=== PATIENT | female | born 1980 | race Two or more races ===

== ENCOUNTER 2018-09-14 21:39 | Emergency (ER) | payer SELFPAY ==
[~2018-09-14] VITALS: Ht 160 cm; Wt 99.8 kg
[~2018-09-14 21:39] MED LIST: ALBU2.5V8 INH; IBUP-1060 PO
[2018-09-14 21:40] VITALS: BP 160/87
[2018-09-14] MEDS ORDERED: ACETAMINOPHEN/CODEINE 300/30MG TABLET. PO ONE (22:30)
[2018-09-14] MEDS ORDERED: NAPR-683 PO (22:52)
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
--- NOTE | 2018-09-15 02:15 | RAD ---
Left shoulder AP and scapular Y x-rays HISTORY: Left shoulder pain. FINDINGS: No fracture or dislocation. Mild lateral clavicle osteophyte at the AC joint. IMPRESSION: No acute osseous injury of the left shoulder. Left clavicle x-rays 2 views HISTORY: Left shoulder and left clavicle pain. FINDINGS: There is a moderate osteophyte of the lateral clavicle projecting superiorly. No separation of the AC joint. No fracture of the clavicle evident. IMPRESSION: No acute osseous injury of the left clavicle. Electronically signed by: Fan Mullen MD (09/15/2018 2:12 AM) [id number]
== END 2018-09-14 23:06 | disposition home or self-care (01) ==
LOC: ER 21:39
DX: S46.812A Strain of other muscles, fascia and tendons at shoulder and upper arm level, left arm, initial encounter (principal); S20.212A Contusion of left front wall of thorax, initial encounter; S20.211A Contusion of right front wall of thorax, initial encounter; T74.11XA Adult physical abuse, confirmed, initial encounter; E11.9 Type 2 diabetes mellitus without complications; Y04.8XXA Assault by other bodily force, initial encounter; Y93.89 Activity, other specified; Y92.89 Other specified places as the place of occurrence of the external cause; Y99.8 Other external cause status
CPT/HCPCS: 73000; 73030; 99284